=== PATIENT | female | born 1975 | race Caucasian/White ===

== ENCOUNTER 2017-01-18 23:59 | Emergency (ER) | payer BC ==
[2017-01-19 01:58] LABS: BASOPHILS ABSOLUTE 0.06 10/3/uL (0.0-0.16); EOSINOPHILS 3.5 %; EOSINOPHILS ABSOLUTE 0.22 10/3/uL (0.0-0.53); ER CBC TAT 0 Hrs 11 Mins; HEMATOCRIT 31.4 % (36.0-48.0); HEMOGLOBIN 9.4 g/dL (12.0-16.0); IMMATURE GRANULOCYTES 0.3 %; IMMATURE GRANULOCYTES ABSOLUTE 0.02 10/3/uL (0.0-0.11); LYMPHOCYTES 33.3 %; LYMPHOCYTES ABSOLUTE 2.08 10/3/uL (0.67-4.30); MEAN PLATELET VOLUME 8.9 fL (9.2-13.0); MONOCYTES 7.4 %; MONOCYTES ABSOLUTE 0.46 10/3/uL (0.21-1.20); NEUTROPHILS 54.5 %; NEUTROPHILS ABSOLUTE 3.41 10/3/uL (2.02-8.40); WHITE BLOOD CELLS 6.3 10/3/uL (4.5-10.5)
[2017-01-19 01:59] LABS: MANUAL DIFF NO %; MEAN CORPUS HGB CONC 29.9 g/dL (32.0-36.0); MEAN CORPUSCULAR HEMOGLOB 19.1 pg (26.0-34.0); MEAN CORPUSCULAR VOLUME 63.7 fL (80-100); PLATELET COUNT 209 10/3/uL (150-400); RBC DISTRIBUTION WIDTH 26.2 % (12.0-16.0); RED CELL COUNT 4.93 10/6/uL (4.0-5.6)
[2017-01-19 02:01] LABS: PARTIAL THROMBO TIME 28.4 SEC (22.5-37.2); PROTIME (NOT ORD) 12.9 SEC (12.0-14.5)
[2017-01-19 02:16] LABS: FREE T4 0.89 NG/DL (0.76-1.46); HYPOCHROMIA 3+ (>30/OIF) (0-2/OIF); MICROCYTES 4+ (>50/OIF) (0-5/OIF); PLATELET ESTIMATE ADQ (ADEQUATE); POLYCHROMASIA 1+ (2-5/OIF) (0-1/OIF)
[2017-01-19 02:17] LABS: BUN (BLOOD UREA NITROGEN) 8 MG/DL (6-23); CALCIUM, SERUM 9.2 MG/DL (8.5-10.4); CHEST PAIN PROFILE TAT 0 Hrs 30 Mins; CHLORIDE, SERUM 102 MMOL/L (96-112); CO2 (CARBON DIOXIDE) 27 MMOL/L (24-34); CREATININE 0.61 MG/DL (0.55-1.02); GFR AFRICAN AMERICAN 129 ML/MIN (>=60); GFR NON AFRICAN AMERICAN 111 ML/MIN (>=60); GLUCOSE, SERUM 106 MG/DL (60-99); POTASSIUM, SERUM 3.3 MMOL/L (3.5-5.3); SODIUM, SERUM 137 MMOL/L (135-148); TROPONIN I <0.02 NG/ML (<0.05)
== END 2017-01-19 04:14 | disposition home or self-care (01) ==
LOC: ER 23:59
PROVIDERS: Emergency Medicine
DX: E07.89 Other specified disorders of thyroid (principal); E05.00 Thyrotoxicosis with diffuse goiter without thyrotoxic crisis or storm; Z88.8 Allergy status to other drugs, medicaments and biological substances
CPT/HCPCS: 70491; 71010; 80048; 83735; 84439; 84443; 84481; 84484; 85025; 85610; 85730; 93005; 99284; Q9967